=== PATIENT | male | born 1970 | race Caucasian/White ===

== ENCOUNTER 2018-07-14 11:16 | Outpatient (RCR) | payer OTHER | END 2018-08-03 | LOC: PT 11:16 | PROVIDERS: ATTEND Specialist | DX: M17.12 Unilateral primary osteoarthritis, left knee (principal); M25.862 Other specified joint disorders, left knee; M25.562 Pain in left knee; M25.662 Stiffness of left knee, not elsewhere classified; M25.462 Effusion, left knee; M62.81 Muscle weakness (generalized) ==

== ENCOUNTER 2019-05-01 08:59 | Outpatient (RCR) | payer OTHER | END 2019-05-05 | LOC: OT 08:59 | PROVIDERS: ATTEND Physical Medicine & Rehabilitation | DX: M17.12 Unilateral primary osteoarthritis, left knee (principal) | CPT/HCPCS: 92507 ×6; 92523; 97032; 97110 ×22; 97112 ×4; 97139 ×2; 97162; 97165; G0283 ×7 ==

== ENCOUNTER 2019-08-02 09:00 | Outpatient (RCR) | payer OTHER | END 2019-08-04 | LOC: OT 09:00 | PROVIDERS: ATTEND Physical Medicine & Rehabilitation | DX: I69.354 Hemiplegia and hemiparesis following cerebral infarction affecting left non-dominant side (principal) | CPT/HCPCS: 97110 ×3; 97139; 97168; G0283 ×2 ==

== ENCOUNTER 2019-08-22 13:00 | Outpatient (RCR) | payer OTHER | END 2019-09-04 | LOC: OT 13:00 | PROVIDERS: ATTEND Physical Medicine & Rehabilitation | DX: I69.954 Hemiplegia and hemiparesis following unspecified cerebrovascular disease affecting left non-dominant side (principal) | CPT/HCPCS: 97110 ×5; G0283 ×5 ==